=== PATIENT | male | born 1965 | race Caucasian/White ===

== ENCOUNTER 2025-02-13 11:44 | Emergency (ER) | payer OTHER, SELFPAY ==
[2025-02-13 11:45] VITALS: BP 124/67
[2025-02-13] MEDS: MOTRIN 400 MG PO (12:33)
--- NOTE | 2025-02-13 12:57 | ED.GENMED ---
History of Present Illness
General
Chief Complaint: BURN-MINOR
Source: patient
Exam Limitations: none
Time Seen by Provider: 02/13/25 12:13
Nursing documentation reviewed up to this point in time: agreed with
History of Present Illness
History of Present Illness:
59-year-old male with a history of alcohol abuse currently in alcohol treatment at [facility] presents to the ER for evaluation of pain in the legs secondary to sunburn. Patient says that the group at the [facility] center was taken to
the beach on Wednesday. Patient says that he does not go in the sun very much and did not apply sunscreen to his legs and unfortunately sustained a severe sunburn to both lower legs. He started having blistering and increasing pain particular on
the left leg which prompted referral to the ER for assessment from his treatment center. He denies significant sunburn on the rest of his body.
Review of Systems
Review of Systems
All Other Systems: ROS reviewed and negative except as documented in HPI and ROS
Skin: Reports other (Sunburn)
Phy Exam
Physical Exam
Physical Exam:
General: Well appearing and non-toxic
HEENT: protecting airway
Neck: appears supple
CV: No evidence of cyanosis
Resp: No accessory muscle use
Abd: Non-distended
Extremities: No deformities
Neuro: Alert
Psych: Normal affect
Skin: From knee down on both lower legs the skin is erythematous, warm to the touch, blanching consistent with a sunburn; on the left lower leg proximal to the ankle he has 3 large tense blisters; good pulses on the lower extremities bilaterally,
trace edema around the ankles
Scores
Heart Failure Risk
Heart Failure Risk Score: Not Applicable
Heart Score for Chest Pain Patients
STEMI patient?: Not applicable
Withdrawal Assessment of Alcohol
Withdrawal Assessment Completed?: Not applicable
Course
Orders/Labs/Results
Orders:
Orders
02/13/25 12:27
Ibuprofen [Motrin] 400 mg PO NOW STA
Vital Signs
Initial and Last Documented VS:
Initial Vital Signs
Temp Pulse Resp BP Pulse Ox
37.1 C 79 16 124/67 99
02/13/25 11:45 02/13/25 11:45 02/13/25 11:45 02/13/25 11:45 02/13/25 11:45
Last Documented Vital Signs
Temp Pulse Resp BP Pulse Ox
37.1 C 79 16 124/67 99
02/13/25 11:45 02/13/25 11:45 02/13/25 11:45 02/13/25 11:45 02/13/25 11:45
MDM/Problems Addressed
Differential Diagnosis Includes:
Sunburn second-degree
MDM/Problems Addressed:
59-year-old male presents with secondary sunburn on the legs after unprotected exposure to the sun at the beach. We spoke about skin protection in the future�he says it was cloudy and he did not think that he would need sunscreen but I explained
that he needs sunscreen regardless of whether it is cloudy to protect from UV radiation. He is mainly concerned with large blisters and pain in the left lower leg. Blisters are large and tense�using sterile technique I did bee them with a 11
blade to extrude fluid; the roof of the blisters were left in place and intact. Xeroform gauze followed by nonadherent dressing and Kerlix wrap applied. Advised patient regarding dressing changes and general skin care. Advised NSAIDs and Tylenol
as needed. Stable for discharge.
*Pulse Oximetry
SaO2: 99
Oxygen Mode of Delivery: Room air
Patient hypoxic: no (99%)
*Critical Care Note
Total Time (30-74mins, 75-104mins- exclusive of procedures): Not Applicable
Data Reviewed
Source: patient
ED Attending Note
-
Portions of this chart may have been created with voice recognition software.� Occasional wrong word or��sound alike� substitutions may have occurred due to the inherent limitations of voice recognition software.
Discharge Plan
Departure
Patient Disposition: Home (Routine Discharge)
Date of Disposition: 02/13/25
Time of Disposition: 12:56
Patient with high blood pressure during this ER visit?: No
Discharge Problem:
Sunburn of second degree
Instructions: Sunburn ED
Prescriptions:
New
aloe vera Gel
1 applic topical 6XD Qty: 170 0RF
Activity Restrictions/Additional Instructions:
Thank you for visiting the Emergency Department at [facility].
1. Please schedule a follow up appointment as directed. Call first thing tomorrow morning to make an appointment.
2. If indicated, please take your medications as instructed and indicated on discharge paperwork.
3. If any of your symptoms do not improve, or persist, or become more severe within 6-12 hours, please return to the emergency department for further care.
4. Please return to the emergency department if you develop a headache, neck pain/stiffness, fever greater than 100.4F, chest pain, shortness of breath, persistent nausea, vomiting, slurred speech, difficulty walking, numbness/tingling, weakness,
signs of infection or any other symptoms that are worrisome to you.
Please call [phone] if you have any questions.
Interventions
Interventions:
*Risk Screen - Suicide Last Done: 02/13/25 11:45
*Neglect/Abuse Screening Last Done: 02/13/25 11:45
ED-Skin Assessment Last Done: 02/13/25 12:42
Discharge Date and Time
Print Language: LAO
== END 2025-02-13 13:05 | disposition home or self-care (01) ==
LOC: EMR 11:44
PROVIDERS: EMERGENCY PHYSICIAN Emergency Medicine
DX: L55.1 Sunburn of second degree (principal); M79.605 Pain in left leg; M79.604 Pain in right leg; X32.XXXA Exposure to sunlight, initial encounter; Y92.832 Beach as the place of occurrence of the external cause; F10.11 Alcohol abuse, in remission; F32.A Depression, unspecified; F17.200 Nicotine dependence, unspecified, uncomplicated
CPT/HCPCS: 99283